=== PATIENT | female | born 1960 | race Caucasian/White ===

== ENCOUNTER 2024-06-30 07:04 | Day surgery (SDC) | payer OTHER ==
[2024-06-26 12:17] VITALS: BMI 29.7
[2024-06-30 11:04] VITALS: TEMP 97.9
[2024-06-30 11:14] VITALS: BP 175/58; PULSE 49; RESP 15
== END 2024-06-30 11:00 | disposition home or self-care (01) ==
LOC: JASU-ENDO 07:04
PROVIDERS: ATTEND Internal Medicine Gastroenterology
PROC: 0DJD8ZZ Inspection of Lower Intestinal Tract, Via Natural or Artificial Opening Endoscopic (ICD-10-PCS; principal; 2024-06-30 10:00)
DX: Z12.11 Encounter for screening for malignant neoplasm of colon (principal); K57.30 Diverticulosis of large intestine without perforation or abscess without bleeding